=== PATIENT | male | born 1985 | race Caucasian/White ===

== ENCOUNTER 2018-09-02 20:19 | Emergency (ER) | payer MEDICARE, OTHER ==
[2018-09-02] MEDS ORDERED: Sodium Chloride 0.9% 1,000 ML IV ONE (21:21)
--- NOTE | 2018-09-02 21:26 | EDM.PDOC ---
ED HPI GENERAL MEDICAL PROBLEM - General Chief Complaint: Wound Recheck Stated Complaint: SORE ON TOE Time Seen by Provider: 09/02/18 21:13 - History of Present Illness INITIAL COMMENTS - FREE TEXT/NARRATIVE: HISTORY AND PHYSICAL: History of present illness: Patient is a 33-year-old white male presents with a concern of diabetic foot he states he's been self treating for this problem that started with his great toe and one trauma sometime ago and now has progressed into erythema with a big callus formation and excoriated plantar surface of the first digit he denies pain no reported fever chills nausea vomiting or other complaints. Review of systems: As per history of present illness and below otherwise all systems reviewed and negative. Past medical history: As per history of present illness and as reviewed below otherwise noncontributory. Surgical history: As per history of present illness and as reviewed below otherwise noncontributory. Social history: No reported history of drug or alcohol abuse. Family history: As per history of present illness and as reviewed below otherwise noncontributory. Physical exam: HEENT: Atraumatic, normocephalic, pupils reactive, negative for conjunctival pallor or scleral icterus, mucous membranes moist, throat clear, neck supple, nontender, trachea midline. Lungs: Clear to auscultation, breath sounds equal bilaterally, chest nontender. Heart: S1S2, regular, negative for clicks, rubs, or JVD. Abdomen: Soft, nondistended, nontender. Negative for masses or hepatosplenomegaly. Negative for costovertebral tenderness. Pelvis: Stable nontender. Genitourinary: Deferred. Rectal: Deferred. Extremities: First digit right foot has large callus formation with an excoriated plantar aspect of the first digit he has a area of surrounding erythema with some proximal extension to the forefoot neurovascular exam is unremarkable Neuro: Awake, alert, oriented. Cranial nerves II through XII unremarkable. Cerebellum unremarkable. Motor and sensory unremarkable throughout. Exam nonfocal. Diagnostics: CBC CMP blood culture 2 x-ray right foot Therapeutics: Saline 1 L bolus Impression: #1 diabetic foot Definitive disposition and diagnosis as appropriate pending reevaluation and review of above. Left Foot Pain Score (Numeric/FACES): 2 - Related Data Allergies Allergy/AdvReac Type Severity Reaction Status Date / Time No Known Allergies Allergy Verified 09/02/18 20:48 Home Meds: Home Meds Aspirin 81 mg PO DAILY 09/02/18 [History] Carvedilol 12.5 mg PO 09/02/18 [History] Losartan [Cozaar] 25 mg PO 09/02/18 [History] Mycophenolate Mofetil [Cellcept] 250 mg PO 09/02/18 [History] Sulfamethoxazole/Trimethoprim [Bactrim 400-80 MG] 09/02/18 [History] Tacrolimus [Prograf] 1 mg PO 09/02/18 [History] predniSONE 5 mg PO 09/02/18 [History] Past Medical History Cardiovascular History: Reports: Hypertension Genitourinary History: Reports: Chronic Renal Insuffiency Endocrine/Metabolic History: Reports: Diabetes, Type II - Infectious Disease History Infectious Disease History: Reports: Chicken Pox - Past Surgical History Cardiovascular Surgical History: Reports: None Other Male Surgeries/Procedures: Right Kidney Transplant Social & Family History - Family History Family Medical History: Noncontributory - Tobacco Use Smoking Status *Q: Current Every Day Smoker Years of Tobacco use: 18 Packs/Tins Daily: 1 - Caffeine Use Caffeine Use: Reports: Coffee, Energy Drinks - Recreational Drug Use Recreational Drug Use: No ED ROS GENERAL - Review of Systems Review Of Systems: ROS reveals no pertinent complaints other than HPI. ED EXAM, GENERAL - Physical Exam Exam: See Below (See dictation) Course - Vital Signs Text/Narrative:: I lengthy discussion with patient regarding the fracture that is approximately 1 -month-old per his history with the associated infection in his diabetes I recommended admission patient declines he understands all the risks including worsening infection amputation and he'll be discharged on Augmentin be taken as prescribed he'll be given podiatry for follow-up is to return as needed as discussed be discharged AMA Last Recorded V/S: Last Vital Signs Temp 36.4 C 09/02/18 20:51 Pulse 80 09/02/18 20:51 Resp 18 09/02/18 20:51 BP 128/75 09/02/18 20:51 Pulse Ox 96 09/02/18 20:51 - Orders/Labs/Meds Orders: Active Orders 24 hr Category Date Time Status CULTURE BLOOD [BC] Stat Lab 09/02/18 21:35 Received CULTURE BLOOD [BC] Stat Lab 09/02/18 22:00 Received Blood Culture x2 Reflex Set [OM.PC] Stat Oth 09/02/18 21:21 Ordered Labs: Laboratory Tests 09/02/18 09/02/18 Range/Units 21:35 21:35 WBC 13.91 H (4.0-11.0) K/uL RBC 4.63 (4.50-5.90) M/uL Hgb 15.0 (13.0-17.0) g/dL Hct 42.2 (38.0-50.0) % MCV 91.1 (80.0-98.0) fL MCH 32.4 H (27.0-32.0) pg MCHC 35.5 (31.0-37.0) g/dL RDW Std Deviation 47.1 (28.0-62.0) fl RDW Coeff of [place] 14 (11.0-15.0) % Plt Count 269 (150-400) K/uL MPV 10.60 (7.40-12.00) fL Neut % (Auto) 75.1 (48.0-80.0) % Lymph % (Auto) 17.4 (16.0-40.0) % [place] % (Auto) 5.5 (0.0-15.0) % Eos % (Auto) 1.7 (0.0-7.0) % Baso % (Auto) 0.3 (0.0-1.5) % Neut # (Auto) 10.5 H (1.4-5.7) K/uL Lymph # (Auto) 2.4 (0.6-2.4) K/uL [place] # (Auto) 0.8 (0.0-0.8) K/uL Eos # (Auto) 0.2 (0.0-0.7) K/uL Baso # (Auto) 0.0 (0.0-0.1) K/uL Nucleated RBC % 0.0 /100WBC Nucleated RBCs # 0 K/uL Sodium 131 L (136-148) mmol/L Potassium 3.7 (3.5-5.1) mmol/L Chloride 96 L (98-107) mmol/L Carbon Dioxide 24.8 (21.0-32.0) mmol/L BUN 16 (7.0-18.0) mg/dL Creatinine 1.0 (0.8-1.3) mg/dL Est Cr Clr Drug Dosing 110.86 mL/min Estimated GFR (MDRD) > 60.0 ml/min Glucose 375 H (74-106) mg/dL Calcium 9.3 (8.5-10.1) mg/dL Total Bilirubin 0.4 (0.2-1.0) mg/dL AST 10 L (15-37) IU/L ALT 30 (14-63) IU/L Alkaline Phosphatase 145 H (46-116) U/L Total Protein 7.8 (6.4-8.2) g/dL Albumin 3.8 (3.4-5.0) g/dL Globulin 4.0 (2.6-4.0) g/dL Albumin/Globulin Ratio 0.9 (0.9-1.6) Meds: Medications Discontinued Medications Generic Name Dose Route Start Last Admin Trade Name Freq PRN Reason Stop Dose Admin Sodium Chloride 1,000 mls @ 999 mls/hr 09/02/18 21:21 09/02/18 21:40 Normal Saline IV 09/02/18 22:21 999 mls/hr STAT ONE Administration Departure - Departure Time of Disposition: 00:24 Disposition: Against Medical Advice 07 Condition: Serious Clinical Impression: Cellulitis, Foot fracture, Diabetes - Discharge Information Referrals: PCP,Not In Area [Primary Care Provider] - Forms: ED Department Discharge Additional Instructions: The following information is given to patients seen in the emergency department who are being discharged to home. This information is to outline your options for follow-up care. We provide all patients seen in our emergency department with a follow-up referral. The need for follow-up, as well as the timing and circumstances, are variable depending upon the specifics of your emergency department visit. If you don't have a primary care physician on staff, we will provide you with a referral. We always advise you to contact your personal physician following an emergency department visit to inform them of the circumstance of the visit and for follow-up with them and/or the need for any referrals to a consulting specialist. The emergency department will also refer you to a specialist when appropriate. This referral assures that you have the opportunity for followup care with a specialist. All of these measure are taken in an effort to provide you with optimal care, which includes your followup. Under all circumstances we always encourage you to contact your private physician who remains a resource for coordinating your care. When calling for followup care, please make the office aware that this follow-up is from your recent emergency room visit. If for any reason you are refused follow-up, please contact the [facility] emergency department at and asked to speak to the emergency department charge nurse. [facility] [address] [place] [id number] Fax: [phone] [facility] [address] [place] [id number] Follow-up podiatry and primary care is discussed Augmentin as prescribed return as needed as discussed - My Orders Last 24 Hours: My Active Orders 09/02/18 21:21 Blood Culture x2 Reflex Set [OM.PC] Stat 09/02/18 21:35 CULTURE BLOOD [BC] Stat 09/02/18 22:00 CULTURE BLOOD [BC] Stat - Assessment/Plan Last 24 Hours: My Active Orders 09/02/18 21:21 Blood Culture x2 Reflex Set [OM.PC] Stat 09/02/18 21:35 CULTURE BLOOD [BC] Stat 09/02/18 22:00 CULTURE BLOOD [BC] Stat
[2018-09-02 22:09] LABS: CHLORIDE,CL 96 mmol/L (98-107); SODIUM,NA 131 mmol/L (136-148)
--- NOTE | 2018-09-02 22:43 | CR ---
Indication: Injury and pain Technique: Two views right foot Comparison: None Findings: There is an oblique articular fracture at the base of the distal phalanx right great toe. Displacement of 2 millimeters plantar. No other fractures are identified. There is prominent soft tissue swelling of the great toe. Impression: Minimally displaced articular fracture distal phalanx right great toe. Dictated by Carlos Manuel Dumont MD @ Sep 02 2018 10:40PM Signed by Dr. Carlos Manuel Dumont @ Sep 02 2018 10:42PM
[2018-09-03] MEDS ORDERED: cefTRIAXone 1 GM in Sodium Chloride 0.9% 50 ML IV ONE (00:36)
== END 2018-09-03 01:11 | disposition left against medical advice (07) ==
LOC: MW.ED 20:19
DX: S92.421A Displaced fracture of distal phalanx of right great toe, initial encounter for closed fracture (principal); E11.621 Type 2 diabetes mellitus with foot ulcer; L03.115 Cellulitis of right lower limb; E11.22 Type 2 diabetes mellitus with diabetic chronic kidney disease; I12.9 Hypertensive chronic kidney disease with stage 1 through stage 4 chronic kidney disease, or unspecified chronic kidney disease; N18.9 Chronic kidney disease, unspecified; F17.210 Nicotine dependence, cigarettes, uncomplicated; Z79.82 Long term (current) use of aspirin; W23.0XXA Caught, crushed, jammed, or pinched between moving objects, initial encounter
CPT/HCPCS: 36415; 73620; 80053; 85025; 87040; 96361; 96365; 99283; J0696; J7040